=== PATIENT | female | born 1970 | race Two or more races ===

== ENCOUNTER 2024-08-09 01:30 | Emergency (ER) | payer MEDICAID, OTHER ==
[~2024-08-09] VITALS: Ht 157.5 cm; Wt 54.5 kg
[2024-08-09] MEDS: SODIUM CHLORIDE 0.9% 1,000 ML IV ONE (02:15)
[2024-08-09] MEDS: ONDANSETRON HCL 4 MG/2 ML VIAL IV ONE (02:15)
--- NOTE | 2024-08-09 02:25 | ED.PDOC ---
History of Present Illness HPI Comments 53-year-old female who came to ER via EMS for headaches. Patient has history of diabetes. Patient has been complaining of right-sided/right temporal headaches for the past 2 weeks. Noted worsening of headaches, now with generalized weakness, nausea, vomiting, and family members noted that patient appears to be altered and confused started a few hours ago. Blood sugar upon arrival was 277 patient denies head injury in the past several weeks, she denies taking any blood thinners. Chief Complaint: Headache Time Seen by MD: 02:23 Reviewed Notes: Residential Program Coordinator Notes Allergies: Coded Allergies: NO KNOWN ALLERGIES (Unverified , 08/09/24) Information Source: Patient, Emergency Med Personnel Mode of Arrival: EMS Severity: Moderate Timing: Days Duration: Intermittent Review of Systems REVIEW OF SYSTEMS: No fever, no chills, or fatigue HEENT: No sore throat, no earache, no congestion, no neck pain. Cardiac: No chest pain. No palpitations. Lungs: No shortness of breath, no cough. GI: (+) nausea, (+) vomiting, no diarrhea, no constipation, no abdominal pain : No dysuria, frequency, or urgency. No hematuria. Musculoskeletal: No joint pain , no joint swelling, no extremity edema. Skin: No rash, no itching. Neuro: (+) headache, no dizziness, no weakness Vital Signs Vital Signs Date Time Temp Pulse Resp B/P (MAP) Pulse Ox O2 Delivery O2 Flow Rate FiO2 08/09/24 04:00 88 08/09/24 01:46 99.8 18 146/68 (94) 93 Physical Exam General: Awake, alert and oriented. No acute distress. Skin: Skin in warm, dry and intact. Appropriate color for ethnicity. Nailbeds pink with no cyanosis. HEENT: The head is normocephalic and atraumatic. Conjunctivae are clear without exudates or hemorrhage. Sclera is non-icteric. EOM are intact. No signs of nystagmus. Eyelids are normal in appearance without swelling or lesions. Oral mucosa is pink and moist Neck: The neck is supple with normal range of motion. No JVD. Cardiac: Heart rate and rhythm are normal. No murmurs, gallops, or rubs are auscultated. Respiratory: No signs of respiratory distress. Lung sounds are clear in all lobes bilaterally without rales, ronchi, or wheezes. Abdominal: Abdomen is soft, non-tender without distention. Bowel sounds are present and normoactive in all four quadrants. Extremities: Upper and lower extremities are atraumatic in appearance without deformity or edema. Neurological: The patient is awake, alert and oriented to person, place, and time with normal speech. Speech is clear. There is no facial asymmetry. Jfacpf-no-duxe test normal. Strength in upper and lower extremities intact Psychiatric: Appropriate mood and affect. Good judgement and insight. No visual or auditory hallucinations. Past Medical History PAST MEDICAL HISTORY: DM Surgical History: Denies all surgeries HOUSING MANAGEMENT OFFICER History: Denies all HOUSING MANAGEMENT OFFICER Hx Family History Family History: Reviewed,noncontributory to illness Social History Smoker: Non-Smoker Alcohol: Denies ETOH Use Drugs: Denies Drug Use Lives In: Home Was a procedure done? Was a procedure done?: No EKG EKG : Pulse Rate (adult): 91 Cardiac Rhythm: NSR Hypertrophy: LAE Comments No STEMI Differential Dx Considerations may include: Anemia, electrolyte imbalance, hyperglycemia, altered level of consciousness, UTI, headaches X-Ray, Labs, Meds, VS Vital Signs Date Time Temp Pulse Resp B/P (MAP) Pulse Ox O2 Delivery O2 Flow Rate FiO2 08/09/24 04:00 88 08/09/24 02:25 91 08/09/24 01:46 99.8 91 18 146/68 (94) 93 08/09/24 01:38 91 Lab Test 08/09/24 02:49 08/09/24 02:28 08/09/24 02:00 Range/Units White Blood Count 10.6 4.4-10.8 10^3/uL Red Blood Count 4.37 4.0-5.20 10^6/uL Hemoglobin 13.3 12.2-16.2 g/dL Hematocrit 38.8 36.0-46.0 % Mean Corpuscular Volume 88.8 80.0-100.0 fL Mean Corpuscular Hemoglobin 30.5 28.0-32.0 pg Mean Corpuscular Hemoglobin Concent 34.4 32.0-36.0 g/dL Red Cell Distribution Width 12.9 11.8-14.3 % Platelet Count 352 140-450 10^3/uL Mean Platelet Volume 9.6 6.9-10.8 fL Neutrophils (%) (Auto) 84.5 H 37.0-80.0 % Lymphocytes (%) (Auto) 9.1 L 10.0-50.0 % Monocytes (%) (Auto) 5.7 0.0-12.0 % Eosinophils (%) (Auto) 0.1 0.0-7.0 % Basophils (%) (Auto) 0.6 0.0-2.0 % Neutrophils # (Auto) 8.9 H 1.6-8.6 10 ^3/uL Lymphocytes # (Auto) 1.0 0.4-5.4 10 ^3/uL Monocytes # (Auto) 0.6 0-1.3 10 ^3/uL Eosinophils # (Auto) 0 0-0.8 10 ^3/uL Basophils # (Auto) 0.1 0-0.2 10 ^3/uL Nucleated Red Blood Cells 0.1 % Sodium Level 129 L 136-145 mmol/L Potassium Level 4.2 3.5-5.1 mmol/L Chloride Level 95 L 98-107 mmol/L Carbon Dioxide Level 26 20-31 mmol/L Anion Gap 8 5-15 Blood Urea Nitrogen 6 L 9-23 mg/dL Creatinine 0.57 0.550-1.02 mg/dL Glomerular Filtration Rate Calc 107 >90 mL/min BUN/Creatinine Ratio 10.5 10.0-20.0 Serum Glucose 279 H 74-106 mg/dL Calcium Level 9.2 8.7-10.4 mg/dL Magnesium Level 2.0 1.6-2.6 mg/dL Total Bilirubin 0.5 0.2-1.0 mg/dL Aspartate Amino Transferase (AST) 12 L 13-40 U/L Alanine Aminotransferase (ALT) 11 7-40 U/L Alkaline Phosphatase 98 46-116 U/L Total Protein 7.3 5.7-8.2 g/dL Albumin 4.5 3.2-4.8 g/dL Beta-Hydroxybutyric Acid 1.297 H < 0.4 mmol/L Plasma/Serum Blood Alcohol < 3.0 <10 mg/dL Blood Gas Specimen Type Arterial Blood Gas Sample Site Right brachial Blood Gas Patient Temperature 37.0 Arterial Blood Date Drawn [id number] Arterial Blood pH 7.416 7.350-7.450 Arterial Blood Partial Pressure CO2 38.3 32.0-45.0 mmHg Arterial Blood Partial Pressure O2 69.6 L 83.0-108.0 mmHg Arterial Blood HCO3 24.1 21.0-28.0 mmol/L Arterial Blood Oxygen Saturation 94.0 94.0-98.0 % Arterial Blood Base Excess -0.3 -2.0-3.0 mmol/L Arterial Blood Oxyhemoglobin 92.3 L 94.0-98.0 % Arterial Blood Carboxyhemoglobin 1.1 0.5-1.5 % Arterial Blood Methemoglobin 0.7 0.0-1.5 % Toney Test N/a Blood Gas Total Hemoglobin 13.30 12.0-16.0 g/dL Blood Gas Modality Room air FiO2 % 21.0 Influenza Type A Antigen Negative Negative Influenza Type B Antigen Negative Negative SARS-CoV-2 Antigen (Rapid) Negative NEGATIVE PROCEDURE(s): HWOCT - HEAD WITHOUT CONTRAST Examination: HWOCT CLINICAL INDICATION: Severe, worsening headache ongoing for 2 weeks COMPARISON: None. CONTRAST USED: None. TECHNIQUE: The examination was performed obtaining 5 mm slices without contrast. The technique for this CT scan was done using principles of ALARA (As Low As Reasonably Achievable). Multiplanar reconstructions were obtained. FINDINGS: SUPRATENTORIAL BRAIN: Cerebral Hemispheres: A heterogeneous density area is noted in the right parieto-occipital region, measuring approximately 4.4 cm (AP) 3.2 cm (transverse). Mild perilesional edema is present. Mild mass effect on the right lateral ventricle, with minimal midline shift of 13 mm to the left. Findings most likely suggestive of subacute hemorrhage. Further evaluation with MRI brain with contrast and venography is recommended for better characterization. Periventricular White Matter/Basal Ganglia: No abnormal areas of altered attenuation within the periventricular white matter or basal ganglia. POSTERIOR FOSSA: The brainstem is normal, and the visualized cerebellar hemispheres are unremarkable. VENTRICULAR SYSTEM: Mild mass effect on the right lateral ventricle. No evidence of hydrocephalus or transependymal flow of cerebrospinal fluid. SKULL BASE AND PARASELLAR REGION: The skull base is normal, with no parasellar masses or abnormalities identified. CALVARIUM AND SCALP REGION: No abnormality detected. PARANASAL SINUSES: No significant inflammatory changes are identified in the paranasal sinuses. IMPRESSION: 1. Heterogeneous density lesion in the right parieto-occipital region (4.4 3.2 cm) with mild perilesional edema and mild mass effect on the right lateral ventricle, causing a minimal midline shift of 13 mm to the left findings suggestive of subacute hemorrhage. Time of 1ST Reevaluation: 02:17 Reevaluation 1ST: Unchanged Patient Education/Counseling: Diagnosis, Treatment Family Education/Counseling: No Family Present Departure 1 Departure Time of Disposition: 04:39 Impression: Primary Impression: Subacute intracranial hemorrhage Disposition: 02 SHORT TERM HOSPITAL Condition: Stable Comments 53-year-old female who presents to the emergency department with worsening headache for 2 weeks. Patient has no neuro deficit. CT head without contrast shows Heterogeneous density lesion in the right parieto-occipital region (4.4 3.2 cm) with mild perilesional edema and mild mass effect on the right lateral ventricle, causing a minimal midline shift of 13 mm to the left findings suggestive of subacute hemorrhage. 0438: Discussed with Dr. Walton at [facility], patient will be transferred for neurosurgery services. Extensive evaluation was performed in attempt to identify or rule out: (See differential diagnosis section) The following tests were ordered, and results were reviewed by me: (See diagnostic results section) The following test were independently interpreted by me: EKG I reviewed and agreed with the following test results read by other providers: CT head I reviewed the following notes from the pt's past medical encounters: N/A Additional information was gathered from interviewing the following independent historians: EMS personnel, patient's stepdaughter at bedside Discussion of management or test interpretation with external physician/other qualified health day care aide: Dr. Walton Addressed an acute or chronic illness that poses a threat to life or bodily function: Subacute intracranial hemorrhage Decision regarding hospitalization or escalation of hospital level of care: Risk and benefits of admission for further treatment of patient's condition was considered. Due to patient's current clinical condition, high risk of decline and poor outcome if discharged and need for further inpatient management and monitoring, patient will be admitted to the hospital. Drug therapy requiring intensive monitoring for toxicity: N/A Parenteral controlled substances: N/A Decision regarding elective major surgery with identified patient or procedure risk factors: N/A Decision regarding emergency major surgery: N/A Decision not to resuscitate or to de-escalate care because of poor prognosis: N/A Diagnosis or treatment significantly limited by social determinants of health: N/A Critical Care Note Critical Care Time?: Yes (30 min-critical care time only) Critical care comment: Due to a high probability of clinically significant, life threatening deterioration, the patient required my highest level of preparedness to intervene emergently and I personally spent this critical care time directly and personally managing the patient. This critical care time included obtaining a history; examining the patient; pulse oximetry; ordering and review of studies; arranging urgent treatment with development of a management plan; evaluation of patient's response to treatment; frequent reassessment; and, discussions with other providers. This critical care time was performed to assess and manage the high probability of imminent, life-threatening deterioration that could result in multi-organ failure. It was exclusive of separately billable procedures and treating other patients and teaching time. Please see my other sections and the rest of the note for further information on patient assessment and treatment. Stability Stability form required: No Heart Score Heart Score: Heart Score Response (Comments) Value History Slightly Suspicious 0 EKG Normal 0 Age 45-64 1 Risk Factors 1 or 2 risk factors 1 Troponin Normal limit 0 Total 2 I personally scribed for PIA BAE MD ([email or web address]) on 08/09/24 at 02:24. Electronically submitted by Declan Plunkett ([email or web address]). I personally scribed for PIA BAE MD ([email or web address]) on 08/09/24 at 04:10. Electronically submitted by Declan Plunkett ([email or web address]). PIA BAE MD Aug 09, 2024 02:24
[2024-08-09 02:37] LABS: COVID19 ANTIGEN SOFIA FIA NEGATIVE (NEGATIVE); Rapid Influenza A Negative (Negative); Rapid Influenza B Negative (Negative)
[2024-08-09 02:37] LABS: Base Excess -0.3 mmol/L (-2.0-3.0)
[2024-08-09 02:45] VITALS: O2SAT 98
[2024-08-09] MEDS: ACETAMINOPHEN 500 MG TAB or CAP PO ONE (02:45)
--- NOTE | 2024-08-09 03:03 | DVH ---
Examination: HWOCT CLINICAL INDICATION: Severe, worsening headache ongoing for 2 weeks COMPARISON: None. CONTRAST USED: None. TECHNIQUE: The examination was performed obtaining 5 mm slices without contrast. The technique for th is CT scan was done using principles of ALARA (As Low As Reasonably Achievable). Multiplanar reconstr uctions were obtained. FINDINGS: SUPRATENTORIAL BRAIN: Cerebral Hemispheres: A heterogeneous density area is noted in the right parieto-occipital region, me asuring approximately 4.4 cm (AP) 3.2 cm (transverse). Mild perilesional edema is present. Mild m ass effect on the right lateral ventricle, with minimal midline shift of 13 mm to the left. Findings most likely suggestive of subacute hemorrhage. Further evaluation with MRI brain with contrast and ve nography is recommended for better characterization. Periventricular White Matter/Basal Ganglia: No abnormal areas of altered attenuation within the periv entricular white matter or basal ganglia. POSTERIOR FOSSA: The brainstem is normal, and the visualized cerebellar hemispheres are unremarkable. VENTRICULAR SYSTEM: Mild mass effect on the right lateral ventricle. No evidence of hydrocephalus or transependymal flow of cerebrospinal fluid. SKULL BASE AND PARASELLAR REGION: The skull base is normal, with no parasellar masses or abnormalitie s identified. CALVARIUM AND SCALP REGION: No abnormality detected. PARANASAL SINUSES: No significant inflammatory changes are identified in the paranasal sinuses. IMPRESSION: 1. Heterogeneous density lesion in the right parieto-occipital region (4.4 3.2 cm) with mild per ilesional edema and mild mass effect on the right lateral ventricle, causing a minimal midline shift of 13 mm to the left findings suggestive of subacute hemorrhage. 2. Further evaluation with MRI brain with contrast and venography is recommended for better characte rization. Electronically Signed 08/09/2024 03:02 Juli Cortez
[2024-08-09 03:26] LABS: Basophils # (auto) 0.1 10 ^3/uL (0-0.2); Basophils % (auto) 0.6 % (0.0-2.0); Eosinophils # (auto) 0 10 ^3/uL (0-0.8); Eosinophils % (auto) 0.1 % (0.0-7.0); Hematocrit 38.8 % (36.0-46.0); Hemoglobin 13.3 g/dL (12.2-16.2); Lymphocytes % (auto) 9.1 % (10.0-50.0); Mean Corpuscular Hemoglobin 30.5 pg (28.0-32.0); Mean Corpuscular Hgb Conc. 34.4 g/dL (32.0-36.0); Mean Corpuscular Volume 88.8 fL (80.0-100.0); Monocytes # (auto) 0.6 10 ^3/uL (0-1.3); Monocytes % (auto) 5.7 % (0.0-12.0); Neutrophils # (auto) 8.9 10 ^3/uL (1.6-8.6); Neutrophils % (auto) 84.5 % (37.0-80.0); Nucleated Red Blood Cells % 0.1 %; Platelet Count (auto) 352 10^3/uL (140-450); Red Blood Cells 4.37 10^6/uL (4.0-5.20); Red Cell Distribution Width 12.9 % (11.8-14.3); White Blood Cell 10.6 10^3/uL (4.4-10.8)
[2024-08-09 03:59] LABS: Alanine Aminotransferase 11 U/L (7-40); Albumin 4.5 g/dL (3.2-4.8); Alkaline Phosphatase 98 U/L (46-116); Anion Gap 8 (5-15); BUN/Creatinine Ratio 10.5 (10.0-20.0); Bilirubin, Total 0.5 mg/dL (0.2-1.0); Calcium 9.2 mg/dL (8.7-10.4); Carbon Dioxide 26 mmol/L (20-31); Potassium 4.2 mmol/L (3.5-5.1); Total Protein 7.3 g/dL (5.7-8.2)
[2024-08-09 04:01] LABS: Aspartate Aminotransferase 12 U/L (13-40); Blood Alcohol < 3.0 mg/dL (<10); Blood Urea Nitrogen 6 mg/dL (9-23); Chloride 95 mmol/L (98-107); Glucose 279 mg/dL (74-106); Sodium 129 mmol/L (136-145)
[2024-08-09 05:00] VITALS: O2SAT 97
[2024-08-09 05:21] VITALS: BP 101/49; PULSE 89; RESP 17; TEMP 98.3
[2024-08-09] MEDS: DexAMETHasone SOD PHOS 10MG/1ML VIAL INJ IV ONE (05:49)
--- NOTE | 2024-08-12 14:49 | ECG ---
[facility] Test Date: 2024-08-09 Test Time: 01:38:04 Pat Name: SHERON STERN Department: er Room: Gender: F Clinical Office Technician: duc : 1970 Requested By: LALA GARRIDO Order Number: [id number] Reading MD: Measurements Intervals [place] Rate: 91 P: 86 MN: 145 QRS: 68 QRSD: 92 T: 55 QT: 377 QTc: 464 Interpretive Statements Sinus rhythm Probable left atrial enlargement Please click the below link to view image of tracing.
== END 2024-08-09 06:03 | disposition short-term general hospital (02) ==
LOC: EDBD 01:30 → ER 01:30
DX: I62.02 Nontraumatic subacute subdural hemorrhage (principal); E11.9 Type 2 diabetes mellitus without complications; R53.1 Weakness; R11.2 Nausea with vomiting, unspecified; Z20.822 Contact with and (suspected) exposure to COVID-19
CPT/HCPCS: 36415; 36600; 70450; 80053; 80320; 82010; 82805; 82947; 83735; 85025; 87426; 87804; 96374; 99291; J1100